=== PATIENT | male | born 1965 | race Asian ===

== ENCOUNTER 2017-12-06 10:17 | Emergency (ER) | payer BC ==
[~2017-12-06] VITALS: Ht 175.3 cm; Wt 79.4 kg
[2017-12-06 10:20] VITALS: Ht 175.3 cm; Wt 79.4 kg
[2017-12-06 10:54] LABS: BASOPHIL % 0.6 % (0-2); PLATELET COUNT 214 x10^3mcL (130-400); RED CELL DISTRIBUTION WIDTH 13.4 % (11.5-14.5)
[2017-12-06 11:03] LABS: CALCIUM 8.9 mg/dL (8.5-10.1); CARBON DIOXIDE 33.1 mmol/L (21-32); CHLORIDE SERUM 99 mmol/L (98-107); CREATININE SERUM 1.1 mg/dL (0.7-1.3); GFR1 > 60 mL/min; GLUCOSE SERUM 159 mg/dL (74-106); POTASSIUM SERUM 3.3 mmol/L (3.5-5.1); SODIUM SERUM 138 mmol/L (136-145)
[2017-12-06 11:07] LABS: ALBUMIN 3.9 g/dL (3.4-5.0); ALKALINE PHOSPHATASE 128 U/L (46-116); ALT/SGPT 36 U/L (16-63); AST/SGOT 16 U/L (15-37); BILIRUBIN TOTAL 1.04 mg/dL (0.20-1.00); TOTAL PROTEIN, SERUM 7.8 g/dL (6.4-8.2)
[2017-12-06 12:42] VITALS: BP 140/78
== END 2017-12-06 12:42 | disposition short-term general hospital (02) ==
LOC: ED 10:17
PROVIDERS: Emergency Medicine
DX: S06.5X0A Traumatic subdural hemorrhage without loss of consciousness, initial encounter (principal); X58.XXXA Exposure to other specified factors, initial encounter; Y93.89 Activity, other specified; Y92.89 Other specified places as the place of occurrence of the external cause; Y99.8 Other external cause status; I10 Essential (primary) hypertension
CPT/HCPCS: 83880; J1953; J2150; Q0092

== ENCOUNTER 2017-12-23 19:14 | Emergency (ER) | payer BC ==
[~2017-12-23] VITALS: Ht 180.3 cm; Wt 83.5 kg
[2017-12-23 20:02] LABS: BASOPHIL % 0.5 % (0-2); PLATELET COUNT 254 x10^3mcL (130-400); RED CELL DISTRIBUTION WIDTH 12.9 % (11.5-14.5)
[2017-12-23 20:06] LABS: CALCIUM 8.4 mg/dL (8.5-10.1); CARBON DIOXIDE 27.3 mmol/L (21-32); CHLORIDE SERUM 107 mmol/L (98-107); CREATININE SERUM 0.9 mg/dL (0.7-1.3); GFR1 > 60 mL/min; GLUCOSE SERUM 117 mg/dL (74-106); POTASSIUM SERUM 4.4 mmol/L (3.5-5.1); SODIUM SERUM 140 mmol/L (136-145)
[2017-12-23 20:11] LABS: ALKALINE PHOSPHATASE 114 U/L (46-116); ALT/SGPT 32 U/L (16-63); AST/SGOT 31 U/L (15-37); BILIRUBIN TOTAL 0.45 mg/dL (0.20-1.00)
[2017-12-23 20:12] LABS: ALBUMIN 3.1 g/dL (3.4-5.0)
[2017-12-23 21:56] VITALS: BP 119/96
== END 2017-12-23 21:56 | disposition home or self-care (01) ==
LOC: ED 19:14
PROVIDERS: Emergency Medicine
DX: R51 Headache (principal); I10 Essential (primary) hypertension; Z98.890 Other specified postprocedural states
CPT/HCPCS: 36415